=== PATIENT | male | born 1970 | race Caucasian/White ===

== ENCOUNTER 2019-04-09 23:33 | Emergency (ER) | payer OTHER ==
[~2019-04-09] VITALS: Ht 162.6 cm; Wt 75.8 kg
[2019-04-10 00:30] VITALS: BP 126/76
--- NOTE | 2019-04-11 11:08 | EKG ---
[place] [address] ELECTROCARDIOGRAM REPORT Name: BONIFACIOELOY Room: [facility]#: [id number] Admission: 04/09/19 Attend Phys: Discharge: 04/10/19 Date of : 70 Date of Service: 04/09/19 2335 Report #: [id number] THIS REPORT FOR: //name// [facility] ED Test Date: 2019-04-09 Test Time: 23:35:18 Pat Name: ELOY VALDOVINOS Department: Room: Gender: Graduate Nurse: NEVAEH : 1970 Requested By: Marcy Phan Order Number: [id number] MD: Marlo Cortes Measurements Intervals [place] Rate: 79 P: 41 LA: 150 QRS: 87 QRSD: 97 T: 54 QT: 435 QTc: 499 Interpretive Statements Sinus rhythm Abnormal T, consider ischemia, anterior leads No previous ECG available for comparison Electronically Signed On 04-11-2019 11:07:12 REGISTERED NURSE FLOAT POOL by Marlo Cortes [email or web address] <ELECTRONICALLY SIGNED> By: Marlo Cortes MD, [facility] 04/11/19 1107 2335 Marlo Cortes MD, FACC /EPI
== END 2019-04-10 00:30 ==
LOC: M.ERS 23:33
DX: R07.89 Other chest pain (principal); F17.200 Nicotine dependence, unspecified, uncomplicated